=== PATIENT | female | born 1970 | race American Indian/Alaskan Native ===

== ENCOUNTER 2017-11-24 18:14 | Emergency (ER) | payer MEDICAID ==
[2017-11-24 18:36] VITALS: BMI 25.4
[2017-11-24 18:41] VITALS: RESP 18; TEMP 97.5; O2SAT 99
--- NOTE | 2017-11-24 19:46 | C.PDOC ---
History Of Present Illness 47 year old female presents to the ER with a complaint of left greater than right upper eyelid edema for the past 2 days. Patient states she had artificial upper eyelashes glued in place 2 weeks ago. Patient also reports having no bowel movement in 3 days. Patient has not tried any treatment for her symptoms; denies discharge from her eye. Patient admits to ETOH use today. Time Seen by Provider: 11/24/17 19:37 Chief Complaint (Nursing): Abdominal Pain History Per: Patient History/Exam Limitations: no limitations Onset/Duration Of Symptoms: Days Current Symptoms Are (Timing): Still Present Associated Symptoms: denies: Fever, Chills, Nausea, Vomiting Exacerbating Factors: None Alleviating Factors: None Recent travel outside of the [place]: No Abnormal Vaginal Bleeding: No Past Medical History Reviewed: Historical Data, Nursing Documentation, Vital Signs Vital Signs: Last Vital Signs Temp 97.5 F L 11/24/17 18:36 Pulse 88 11/24/17 18:36 Resp 18 11/24/17 18:36 BP 99/75 L 11/24/17 18:36 Pulse Ox 99 11/24/17 19:46 - Medical History PMH: HTN Family History: States: Unknown Family Hx - Social History Hx Alcohol Use: Yes Hx Substance Use: No - Immunization History Hx Tetanus Toxoid Vaccination: No Hx Influenza Vaccination: No Hx Pneumococcal Vaccination: No Review Of Systems Constitutional: Negative for: Fever, Chills Eyes: Positive for: Other (Eyelid swelling) Gastrointestinal: Negative for: Nausea, Vomiting, Abdominal Pain Physical Exam - Physical Exam Appears: Non-toxic, No Acute Distress, Other (ETOH on breath) Skin: Normal Color, Warm, Dry Head: Normacephalic Eye(s): bilateral: Other (Large prosthetic eyelashes glued to natural upper eyelashes loosened at the medial aspect. Edema to upper eyelids, left greater than right. Pin point pupils.) Nose: Normal Oral Mucosa: Moist Chest: Symmetrical, No Tenderness Cardiovascular: Rhythm Regular Respiratory: Normal Breath Sounds, No Rales, No Rhonchi, No Wheezing Gastrointestinal/Abdominal: Soft, No Tenderness, Other (Midline diastasis without hernia) Neurological/Psych: Oriented x3, Normal Speech ED Course And Treatment O2 Sat by Pulse Oximetry: 99 (Room air) Pulse Ox Interpretation: Normal Progress Note: Prednisone administered. Medical Decision Making Medical Decision Making: irritation of b/l upper eyelids, from glued-on upper eyelash prosthestics no eye infections recommend to remove ice packs. medrol dose pack Disposition Doctor Will See Patient In The: Office Counseled Patient/Family Regarding: Studies Performed, Diagnosis - Disposition Referrals: Buck Lincoln MD [Medical Doctor] - Disposition: HOME/ ROUTINE Disposition Time: 19:46 Condition: GOOD Additional Instructions: continue medrol dose pack (descending dose steroids) for eyelid edema/swelling ice packs to L eye 1/2 hour per hour, nothing hot. Remove artificial eyelashes- causing a contact dermatitis/irritation Constipation: Trial a laxative now- recommend a bottle of Mag Citrate- and re-eval your abdominal discomfort after using the bathroom 2-3 times. Prescriptions: Methylprednisolone [Medrol Dose Pack (21 tabs)] 4 mg PO DAILY #21 mg Instructions: Contact Dermatitis (DC) Forms: [employer] (Macedonian) - Clinical Impression Clinical Impression: Edema of left eyelid - Scribe Statement The provider has reviewed the documentation as recorded by the Scribbrian Panchal All medical record entries made by the Scribe were at my direction and personally dictated by me. I have reviewed the chart and agree that the record accurately reflects my personal performance of the history, physical exam, medical decision making, and the department course for this patient. I have also personally directed, reviewed, and agree with the discharge instructions and disposition.
[2017-11-24 19:53] VITALS: BP 106/76; PULSE 72
== END 2017-11-24 19:54 | disposition home or self-care (01) ==
LOC: C.ER 18:14
DX: H02.844 Edema of left upper eyelid (principal)

== ENCOUNTER 2018-01-09 13:56 | Emergency (ER) | payer MEDICAID ==
[2018-01-09 13:57] VITALS: BMI 25.4
[2018-01-09 15:13] LABS: BASO # 0.1 K/uL (0.0-0.2); BASO % 1.3 % (0.0-2.0); EOS # 0.1 K/uL (0.0-0.7); EOS % 2.7 % (0.0-4.0); HEMOGLOBIN 12.1 g/dL (11.0-16.0); LYMPH % 52.8 % (20.0-40.0); MEAN CELL VOLUME 95.6 fL (81.0-99.0); MEAN CORPUSCULAR HEMOGLOBIN 32.6 pg (27.0-31.0); MEAN CORPUSCULAR HGB CONC 34.1 g/dL (33.0-37.0); MEAN PLATELET VOLUME 7.5 fL (7.2-11.7); MONO # 0.3 K/uL (0.0-0.8); MONO % 7.6 % (0.0-10.0); NEUT # 1.4 K/uL (1.8-7.0); NEUT % 35.6 % (50.0-75.0); NRBC % 0.1 % (0.0-2.0); RBC 3.72 Mil/uL (3.80-5.20); RED CELL DISTRIBUTION WIDTH 13.9 % (11.5-14.5); WHITE BLOOD COUNT 3.9 K/uL (4.8-10.8)
[2018-01-09] MEDS ORDERED: Sodium Chloride 0.9% 1,000 ML IV STA (15:15)
--- NOTE | 2018-01-09 15:15 | C.PDOC ---
History Of Present Illness 47 Y/O FEMALE PRESENTS TO ED WITH C/O VAGINAL BLEEDING FOR 3 DAYS WITH OCCASIONAL PELVIC CRAMPING AND C/O OF MIGRAINE SINCE 11AM NON IMPROVED WITH MOTRIN. PATIENT STATES SHE HAS BEEN MENOPAUSAL FOR 3 YEARS AND IS NOT AWARE OF BUSINESS SERVICES ASSOCIATE ABNORMALITIES. PATIENT ADMITS TO NAUSEA AND DENIES VOMITING, FEVER, CHILLS, DYSURIA OR BACK PAIN. Time Seen by Provider: 01/09/18 14:33 Chief Complaint (Nursing): Female Genitourinary History Per: Patient History/Exam Limitations: no limitations Onset/Duration Of Symptoms: Days Current Symptoms Are (Timing): Still Present Past Medical History Reviewed: Historical Data, Nursing Documentation, Vital Signs Vital Signs: Last Vital Signs Temp 97.8 F 01/09/18 17:05 Pulse 72 01/09/18 17:05 Resp 18 01/09/18 17:05 BP 105/69 01/09/18 17:05 Pulse Ox 98 01/09/18 17:05 - Medical History PMH: HTN Surgical History: No Surg Hx Family History: States: No Known Family Hx - Social History Hx Alcohol Use: Yes Hx Substance Use: No - Immunization History Hx Tetanus Toxoid Vaccination: No Hx Influenza Vaccination: No Hx Pneumococcal Vaccination: No Review Of Systems Constitutional: Negative for: Fever, Chills Gastrointestinal: Negative for: Nausea, Vomiting Genitourinary: Positive for: Vaginal Bleeding, Pelvic Pain. Negative for: Dysuria, Vaginal Discharge Musculoskeletal: Negative for: Back Pain Physical Exam - Physical Exam Appears: Non-toxic, Other (In moderate distress) Skin: Warm, Dry, No Rash Head: Atraumatic, Normacephalic Eye(s): bilateral: Normal Inspection Oral Mucosa: Moist Neck: Normal ROM, Supple Cardiovascular: Rhythm Regular Respiratory: Normal Breath Sounds, No Rales, No Rhonchi, No Wheezing Gastrointestinal/Abdominal: Soft, No Tenderness, No Guarding, No Rebound Back: No CVA Tenderness Extremity: Normal ROM, Capillary Refill (<2 seconds) Neurological/Psych: Oriented x3, Normal Speech, Normal Cognition ED Course And Treatment - Laboratory Results Result Diagrams: 01/09/18 15:07 01/09/18 15:07 O2 Sat by Pulse Oximetry: 100 (RA) Pulse Ox Interpretation: Normal Reevaluation Time: 17:44 Reassessment Condition: Improved (banuelos resolved. ADVISED FU OBGYN IF PERSIST SX) Disposition Counseled Patient/Family Regarding: Studies Performed, Diagnosis, Need For Followup - Disposition Referrals: [facility] [Outside] [facility] [Outside] [facility] [Outside] Disposition: HOME/ ROUTINE Disposition Time: 17:44 Condition: IMPROVED Additional Instructions: RETURN IF WORSENING BLEEDING. FOLLOW UP WITH OBGYN FOR FURTHER EVALUATION. Instructions: Migraine Headache (DC) Forms: [facility] (Kazakh), Work/School/Gym Excuse - Clinical Impression Clinical Impression: Postmenopausal bleeding, Migraine - Scribe Statement The provider has reviewed the documentation as recorded by the Rohanibbrian Montesinos All medical record entries made by the Waldemar were at my direction and personally dictated by me. I have reviewed the chart and agree that the record accurately reflects my personal performance of the history, physical exam, medical decision making, and the department course for this patient. I have also personally directed, reviewed, and agree with the discharge instructions and disposition.
[2018-01-09 15:27] LABS: ALB/GLOB RATIO 1.2 (1.0-2.1); ALBUMIN 3.9 g/dL (3.5-5.0); ALT/SGPT 15 U/L (9-52); AST/SGOT 18 U/L (14-36); BLOOD UREA NITROGEN 11 mg/dL (7-17); CALCIUM 8.9 mg/dl (8.6-10.4); GFR AFRICAN-AMERICAN > 60; GFR NON-AFRICAN AMERICAN > 60
[2018-01-09] MEDS ORDERED: Sodium Chloride 0.9% 1,000 ML ONE (15:31)
[2018-01-09 17:06] VITALS: BP 105/69; PULSE 72; RESP 18; TEMP 97.8
--- NOTE | 2018-01-09 17:24 | US ---
HISTORY: vb COMPARISON: None available. TECHNIQUE: Transabdominal and transvaginal FINDINGS: UTERUS: Measures 11.5 x 5.5 x 6.5 cm. Heterogeneous echotexture. Solitary small discrete fundal intramural fibroid, 1.4 x 1.6 x 2.1 cm. ENDOMETRIUM: Measures 5 mm in diameter. Unremarkable. CERVIX: No cervical abnormality identified. RIGHT OVARY: Measures 4.0 x 1.8 x 3.9 cm. No solid mass. Normal flow. Simple cyst, 2.2 x 1.3 x 1.4 cm. LEFT OVARY: Measures 2.3 x 1.2 x 2.3 cm. No solid mass. Normal flow. FREE FLUID: No significant free fluid noted. OTHER FINDINGS: None. IMPRESSION: 2.1 cm fundal intramural uterine fibroid. 2.2 cm simple right ovarian cyst, likely physiologic. No other abnormality identified.
[2018-01-09 17:47] VITALS: O2SAT 100
== END 2018-01-09 17:54 | disposition home or self-care (01) ==
LOC: C.ER 13:56
DX: N95.0 Postmenopausal bleeding (principal); G43.909 Migraine, unspecified, not intractable, without status migrainosus
CPT/HCPCS: 76830; 76856; 80053; 85025; 96360; 96372; 99284; J0780; J3030; J7040

== ENCOUNTER 2018-05-10 19:18 | Emergency (ER) | payer MEDICAID ==
[2018-05-10 19:19] VITALS: BMI 25.4
[2018-05-10] MEDS ORDERED: Sodium Chloride 0.9% 1,000 ML IV ONE (20:32)
[2018-05-10 20:55] LABS: BASO # 0.1 K/uL (0.0-0.2); EOS # 0.1 K/uL (0.0-0.7); HEMOGLOBIN 11.9 g/dL (11.0-16.0); LYMPH # 2.5 K/uL (1.0-4.3); LYMPH % 33.2 % (20.0-40.0); MEAN CELL VOLUME 94.1 fL (81.0-99.0); MEAN CORPUSCULAR HEMOGLOBIN 32.2 pg (27.0-31.0); MEAN CORPUSCULAR HGB CONC 34.2 g/dL (33.0-37.0); MEAN PLATELET VOLUME 6.9 fL (7.2-11.7); MONO # 0.5 K/uL (0.0-0.8); MONO % 7.2 % (0.0-10.0); NEUT # 4.2 K/uL (1.8-7.0); NEUT % 56.6 % (50.0-75.0); NRBC % 0.1 % (0.0-2.0); RBC 3.7 Mil/uL (3.80-5.20); RED CELL DISTRIBUTION WIDTH 13.8 % (11.5-14.5); WHITE BLOOD COUNT 7.5 K/uL (4.8-10.8)
[2018-05-10] MEDS ORDERED: Sodium Chloride 0.9% 1,000 ML ONE (20:58)
[2018-05-10 21:18] LABS: ALB/GLOB RATIO 1.3 (1.0-2.1); ALBUMIN 4.7 g/dL (3.5-5.0); CALCIUM 9.6 mg/dl (8.6-10.4)
[2018-05-10 22:20] VITALS: TEMP 98.4
[2018-05-10 23:54] VITALS: BP 90/58; PULSE 62; RESP 20; O2SAT 98
--- NOTE | 2018-05-11 03:26 | C.PDOC ---
History Of Present Illness 47 year old female presents to the ED for evaluation of right-sided abdominal pain and right leg numbness for 3 years. Patient admits to mild nausea. She notes she has seen her PMD for leg complaint in the past. She denies fever, chills, vomiting, blood in urine or stool. Chief Complaint (Nursing): Lower Extremity Problem/Injury History Per: Patient History/Exam Limitations: no limitations Onset/Duration Of Symptoms: Days Current Symptoms Are (Timing): Still Present Additional History Per: Patient Past Medical History Reviewed: Historical Data, Nursing Documentation, Vital Signs Vital Signs: Last Vital Signs Temp 98.4 F 05/10/18 23:53 Pulse 62 05/10/18 23:53 Resp 20 05/10/18 23:53 BP 90/58 L 05/10/18 23:53 Pulse Ox 98 05/11/18 03:30 - Medical History PMH: Asthma, Depression, HTN Surgical History: No Surg Hx Family History: States: Unknown Family Hx - Social History Hx Alcohol Use: No Hx Substance Use: No - Immunization History Hx Tetanus Toxoid Vaccination: No Hx Influenza Vaccination: No Hx Pneumococcal Vaccination: No Review Of Systems Constitutional: Negative for: Fever, Chills Gastrointestinal: Positive for: Nausea, Abdominal Pain (epigastric ). Negative for: Vomiting, Hematochezia Genitourinary: Negative for: Hematuria Physical Exam - Physical Exam Appears: Non-toxic, No Acute Distress Skin: Normal Color, Warm, Dry Head: Atraumatic, Normacephalic Eye(s): bilateral: Normal Inspection Oral Mucosa: Moist Neck: Supple Chest: Symmetrical, No Deformity, No Tenderness Cardiovascular: Rhythm Regular, No Murmur Respiratory: Normal Breath Sounds, No Rales, No Rhonchi, No Wheezing Gastrointestinal/Abdominal: Soft, Tenderness (right-sided ), No Guarding, No Rebound Extremity: Normal ROM, Capillary Refill (less than 2 seconds ), No Swelling Pulses: Left Dorsalis Pedis: Normal, Right Dorsalis Pedis: Normal Neurological/Psych: Oriented x3, Normal Speech, Normal Cognition ED Course And Treatment - Laboratory Results Result Diagrams: 05/10/18 20:50 05/10/18 20:50 O2 Sat by Pulse Oximetry: 98 (on RA) Pulse Ox Interpretation: Normal - CT Scan/US CT A/P Other Rad Studies (CT/US): Read By Radiologist, Radiology Report Reviewed CT/US Interpretation: EXAM: CT Abdomen and Pelvis Without Intravenous Contrast. EXAM DATE/TIME: 05/10/2018 9:20 PM. CLINICAL HISTORY: 47 years old , female; Pain; Abdominal pain; Flank; Right lower quadrant (rlq); Additional info: Right. sided abdominal pain. TECHNIQUE: Axial computed tomography images of the abdomen and pelvis without intravenous contrast. All CT scans at this facility use at least one of these dose optimization techniques: automated. exposure control; mA and/or kV adjustment per patient size ( includes targeted exams where dose is. matched to clinical indication); or iterative reconstruction. Coronal and sagittal reformatted images were created and reviewed. COMPARISON: No relevant prior studies available. FINDINGS: Lower thorax: No acute findings. ABDOMEN: Liver: Normal. No mass. Gallbladder and bile ducts: Normal. No calcified stones. No ductal dilation. Pancreas: Normal. No ductal dilation. Spleen: Normal. No splenomegaly. Adrenals: Normal. No mass. Kidneys and ureters: There are right renal collecting system calcifications. No hydronephrosis. Stomach and bowel: Density in the stomach is likely secondary to ingested food. No obstruction. No mucosal thickening. Moderate diverticulosis is present in the sigmoid and descending colon. There is no evidence of diverticulitis. Appendix: A normal appendix is identified. PELVIS: Bladder: Decompressed. Reproductive: Unremarkable as visualized. ABDOMEN and PELVIS: Intraperitoneal space: Normal. No free air. No significant fluid collection. Bones/joints: No acute fracture. No dislocation. Soft tissues: Unremarkable. Vasculature: Normal. No abdominal aortic aneurysm. Lymph nodes: Normal. No enlarged lymph nodes. IMPRESSION: No evidence of an acute intra-abdominal or pelvic abnormality. Normal appendix. No. obstructive uropathy Medical Decision Making Medical Decision Making: Impression: 47 year old female with right-sided abdominal pain, right leg numbness Progress: Bloodwork, CT A/P ordered and reviewed. Pepcid IVP, Toradol IVP, Zofran IVP and IV Fluids given. Disposition - Disposition Referrals: Kenneth Ortiz, [Non-Staff] - Disposition: HOME/ ROUTINE Disposition Time: 23:20 Condition: GOOD Additional Instructions: SANA MCKNIGHT, thank you for letting us take care of you today. The emergency medical care you received today was directed at your acute symptoms. If you were prescribed any medication, please fill it and take as directed. It may take several days for your symptoms to resolve. Return to the Emergency Department if your symptoms worsen, do not improve, or if you have any other problems. Please contact your doctor or call one of the physicians/clinics you have been referred to that are listed on the Patient Visit Information form that is included in your discharge packet. Bring any paperwork you were given at discharge with you along with any medications you are taking to your follow up visit. Our treatment cannot replace ongoing medical care by a primary care provider outside of the emergency department. Thank you for allowing the [facility] team to be part of your care today. Follow up with your primary care doctor in 2-3 days for re-evaluation and further management. Prescriptions: Ciprofloxacin [Cipro] 500 mg PO BID #14 tab Ibuprofen [Motrin] 600 mg PO Q6 PRN #20 tab PRN Reason: Pain, Moderate (4-7) metroNIDAZOLE [Flagyl] 500 mg PO TID #21 tab Instructions: High Fiber Diet, Diverticulosis (DC) Forms: [employer] (Citizen [place]) - Clinical Impression Clinical Impression: Diverticulosis - Scribe Statement The provider has reviewed the documentation as recorded by the Scribe (Pallavi Isaac) Provider Attestation: All medical record entries made by the Scribe were at my direction and personally dictated by me. I have reviewed the chart and agree that the record accurately reflects my personal performance of the history, physical exam, medical decision making, and the department course for this patient. I have also personally directed, reviewed, and agree with the discharge instructions and disposition.
--- NOTE | 2018-05-11 07:27 | CT ---
Date of service: 05/10/2018 PROCEDURE: CT Abdomen and Pelvis without intravenous contrast HISTORY: right sided abdominal pain COMPARISON: None. TECHNIQUE: Multiple contiguous axial images were performed through the abdomen and pelvis without the use of intravenous contrast. Subsequently, sagittal and coronal reformatted images were obtained. Radiation dose: Total exam DLP = 559 mGy-cm. This CT exam was performed using one or more of the following dose reduction techniques: Automated exposure control, adjustment of the mA and/or kV according to patient size, and/or use of iterative reconstruction technique. FINDINGS: LOWER THORAX: Punctate 1 millimeter subpleural nodule at the anterior aspect of the lingula. LIVER: Unremarkable. No gross lesion or ductal dilatation. GALLBLADDER AND BILE DUCTS: Unremarkable. PANCREAS: Unremarkable. No gross lesion or ductal dilatation. SPLEEN: Unremarkable. ADRENALS: Unremarkable. No mass. KIDNEYS AND URETERS: Punctate calcifications in the right renal collecting system. No gross hydronephrosis. VASCULATURE: Unremarkable. No aortic aneurysm. BOWEL: Unremarkable. No obstruction. No gross mural thickening. Density in the stomach is likely related to ingested food. Clinical correlation. Moderate diverticulosis is present in the sigmoid and descending colon. APPENDIX: No findings to suggest acute appendicitis. PERITONEUM: Unremarkable. No free fluid. No free air. LYMPH NODES: Unremarkable. No enlarged lymph nodes. BLADDER: Underdistended and or mildly thickened urinary bladder. Clinical correlation. REPRODUCTIVE: Heterogeneous uterus and left adnexa. BONES: Degenerative changes in the spine. Schmorl's node formation noted at the superior endplate of the L4 vertebral body. OTHER FINDINGS: None. IMPRESSION: Punctate calcifications in the right renal collecting system. No gross hydronephrosis. Underdistended and or mildly thickened urinary bladder. Clinical correlation. Additional findings as above. These findings were preliminarily reported at 11:23 p.m. on 05/10/[address] Rain Magana from [facility].
== END 2018-05-10 23:54 | disposition home or self-care (01) ==
LOC: C.ER 19:18
DX: K57.30 Diverticulosis of large intestine without perforation or abscess without bleeding (principal); I10 Essential (primary) hypertension
CPT/HCPCS: 74176; 80053; 83690; 85025; 96374; 96375; 99285; J1885; J2405; J7030

== ENCOUNTER 2018-05-11 22:24 | Emergency (ER) | payer MEDICAID ==
[2018-05-11 22:24] VITALS: BMI 25.4
--- NOTE | 2018-05-11 23:36 | C.PDOC ---
History Of Present Illness 47 yo female presents to the ED for evaluation of gradually worsening right- sided leg pain for past few days. Pt admits, pain originate from Right lower back and radiates to right buttock and Right posterior thigh area. Pty admits, similar sx in past, " used to take Gabapentin for pain". Pt admits " gabapentin mess up my body" and admits developed a rash to her LEs since yesterday. Otherwise, pt denies any recent trauma, injury, fever, chills, UTI sx, saddle anesthesia, incontinence, denies weakness, deformity, sensory or vascular deficits to B/L lEs. Ambulate to ED for evaluation, not in nay apparent distress. FYI: ED records review, pt was seen here in ED yesterday when was evaluated secondary of abd. pain complaint. Blood owrk, UA, CT abd/pelvis performed, pt was discharge with Rx: Cipro/Flagyl with Dx: Diverticulosis. Time Seen by Provider: 05/11/18 22:42 Chief Complaint (Nursing): Lower Extremity Problem/Injury History Per: Patient History/Exam Limitations: no limitations Onset/Duration Of Symptoms: Days Current Symptoms Are (Timing): Still Present Recent travel outside of the [place]: No Past Medical History Reviewed: Historical Data, Nursing Documentation, Vital Signs Vital Signs: Last Vital Signs Temp 98.3 F 05/12/18 00:09 Pulse 81 05/12/18 00:09 Resp 17 05/12/18 00:09 BP 118/72 05/12/18 00:09 Pulse Ox 96 05/12/18 01:00 - Medical History PMH: Asthma, Depression, HTN Other Surgeries: Dilation and Curettage Family History: States: Unknown Family Hx - Social History Hx Tobacco Use: No Hx Alcohol Use: No Hx Substance Use: No - Immunization History Hx Tetanus Toxoid Vaccination: No Hx Influenza Vaccination: No Hx Pneumococcal Vaccination: No Review Of Systems Except As Marked, All Systems Reviewed And Found Negative. Constitutional: Negative for: Fever, Chills Eyes: Negative for: Vision Change ENT: Negative for: Throat Pain, Throat Swelling Cardiovascular: Negative for: Chest Pain, Palpitations Respiratory: Negative for: Cough, Shortness of Breath, Wheezing Gastrointestinal: Negative for: Abdominal Pain Musculoskeletal: Positive for: Back Pain (Right, lower back pain), Leg Pain ( Right), Other (Right buttock pain) Skin: Positive for: Rash (b/l LE) Neurological: Negative for: Weakness, Numbness Physical Exam - Physical Exam Appears: Well, Non-toxic, No Acute Distress Skin: Normal Color, Warm, Dry, Rash (scattered erythematous rash to B/L lower legs, no cellulitis.) Head: Normacephalic Eye(s): bilateral: PERRL Nose: No Flaring, No Discharge Oral Mucosa: Moist Throat: No Erythema, No Drooling Neck: Trachea Midline, No Midline Cervical Tenderness, No Paracervical Tenderness, No Step Off Deformity, Supple Cardiovascular: Rhythm Regular, No Murmur, No JVD Respiratory: No Decreased Breath Sounds, No Accessory Muscle Use, No Stridor, No Wheezing Gastrointestinal/Abdominal: Soft, No Tenderness, No Distention, No Guarding, No Rebound Back: No CVA Tenderness, No Vertebral Tenderness, No Muscle Spasm, Paraspinal Tenderness (Right lumbar), No Straight Leg Raising Extremity: Normal ROM (RLE), Tenderness (diffuse Right posterior thigh, no palpable deformity.), No Calf Tenderness (B/L), No Deformity, No Swelling ED Course And Treatment O2 Sat by Pulse Oximetry: 96 (RA) Pulse Ox Interpretation: Normal Progress Note: Patient was given benadryl (25 mg PO), Ultram (50 mg PO), predniSONE (60 mg PO) in the ED. On re-evaluation, pt is Afebrile, hemodynamicaly stable. NOn-toxic, ambulatory in Ed with stable gait. ENT: no acute findings. Uvula midline, no edema. Neck: SUpple, (-)JVD. Lungs: CTA B/L , BS equal B/L. Abd: benign, (-) guaridng, (-) rebound. Back: (-) CVA tenderness. Neurologicaly intact. Pt has clinical finidngs c/w lumbar radiculopathy, right. Skin rash to B/L lower legs r/o reaction to Gabapentin. 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 return to ED if any worsening or new changes. Disposition Counseled Patient/Family Regarding: Diagnosis, Need For Followup, Rx Given - Disposition Referrals: Alissa Rangel DO [Staff Provider] - Disposition: HOME/ ROUTINE Disposition Time: 23:36 Condition: STABLE Additional Instructions: STOP GABAPENTIN DUE TO POSSIBLE ALLERGY Take medication as prescribed Follow up with PMD in 2-3 days for re-evaluation. return to Ed if any worsening or new changes. Prescriptions: Prednisone [Deltasone] 40 mg PO DAILY #6 tablet traMADol [Ultram] 50 mg PO TID #7 tab Instructions: Hives, Radiculopathy (DC) Forms: [employer] ([place]) - Clinical Impression Clinical Impression: Lumbar radiculopathy, Urticaria - PA / INTERACTIVE MEDIA SPECIALIST / Resident Statement MD/DO has reviewed & agrees with the documentation as recorded. - Scribe Statement The provider has reviewed the documentation as recorded by the Scribe (Jodi Castañeda) All medical record entries made by the Scribe were at my direction and personally dictated by me. I have reviewed the chart and agree that the record accurately reflects my personal performance of the history, physical exam, medical decision making, and the department course for this patient. I have also personally directed, reviewed, and agree with the discharge instructions and disposition.
[2018-05-12 00:11] VITALS: BP 118/72; PULSE 81; RESP 17; TEMP 98.3
[2018-05-12 00:57] VITALS: O2SAT 96
== END 2018-05-12 00:11 | disposition home or self-care (01) ==
LOC: C.ER 22:24
DX: M54.16 Radiculopathy, lumbar region (principal); L50.9 Urticaria, unspecified

== ENCOUNTER 2018-07-22 13:44 | Emergency (ER) | payer MEDICAID ==
[2018-07-22 13:44] VITALS: BMI 25.4
[2018-07-22 14:07] VITALS: RESP 20; O2SAT 96
--- NOTE | 2018-07-22 14:21 | C.PDOC ---
History Of Present Illness 47 y/o female with a PMHx of HTN presents to the ED complaining of pain and swelling to the right side of her face, occurring on and off for the past year. Patient states the right side of her face feels puffy, and became increasingly painful and burning since this morning, prompting her to come to the ED. She also reports pain to the bilateral hands and right leg. Patient complains of low back pain that radiates down the right leg, with occasional numbness to the right thigh. She denies any fever, chills, urinary frequency, dysuria, bowel/bladder incontinence, cough or URI symptoms. Additionally patient reports having shortness of breath for a while now which occurs while at rest and on exertion. She denies associated chest pain, palpitations, or dizziness. Patient denies history of diabetes, but states she has not been checked. Time Seen by Provider: 07/22/18 13:57 Chief Complaint (Nursing): Headache History Per: Patient History/Exam Limitations: no limitations Onset/Duration Of Symptoms: Intermittent Episodes Current Symptoms Are (Timing): Still Present Past Medical History Vital Signs: Last Vital Signs Temp 98.3 F 07/22/18 14:03 Pulse 102 H 07/22/18 14:03 Resp 20 07/22/18 14:03 BP 149/101 H 07/22/18 14:03 Pulse Ox 96 07/22/18 14:03 - Medical History PMH: Asthma, Depression, HTN Family History: States: Unknown Family Hx - Social History Hx Tobacco Use: No Hx Alcohol Use: No Hx Substance Use: No - Immunization History Hx Tetanus Toxoid Vaccination: No Hx Influenza Vaccination: No Hx Pneumococcal Vaccination: No Review Of Systems Except As Marked, All Systems Reviewed And Found Negative. Constitutional: Positive for: Other (Right-sided facial pain/swelling). Ne gative for: Fever, Chills Eyes: Negative for: Vision Change ENT: Negative for: Ear Pain, Throat Pain Cardiovascular: Negative for: Chest Pain, Palpitations Respiratory: Positive for: Shortness of Breath. Negative for: Cough Gastrointestinal: Negative for: Nausea, Vomiting Genitourinary: Negative for: Dysuria, Frequency, Incontinence Musculoskeletal: Positive for: Back Pain, Hand Pain (bilateral), Leg Pain (right) Skin: Negative for: Rash Neurological: Positive for: Numbness (to right thigh), Headache. Negative for: Weakness, Incoordination Physical Exam - Physical Exam Appears: Well, Non-toxic, No Acute Distress Skin: Warm, Dry, No Rash Head: Atraumatic, Other (Mild facial swelling to right side over the cheek, chin, and forehead. No temporal artery tenderness) Eye(s): bilateral: Normal Inspection, PERRL, EOMI Ear(s): Bilateral: Normal Oral Mucosa: Moist Tongue: Normal Appearing, No Swelling Lips: Normal Appearing, No Swelling Throat: No Erythema, No Exudate Neck: Normal ROM, Supple Chest: Symmetrical, No Tenderness Cardiovascular: Rhythm Regular, No Friction Rub, No Murmur Respiratory: Normal Breath Sounds, No Rales, No Rhonchi, No Wheezing Gastrointestinal/Abdominal: Soft, No Tenderness, No Distention Back: Normal Inspection, No CVA Tenderness, No Vertebral Tenderness Extremity: No Normal ROM, No Swelling Extremity: Bilateral: Atraumatic (with no swelling, ecchymosis, or point tende rness), Normal Color And Temperature, Normal ROM (x4) Pulses: Left Radial: Normal, Right Radial: Normal, Left Dorsalis Pedis: Normal, Right Dorsalis Pedis: Normal Neurological/Psych: Oriented x3, Normal Speech, Normal Cranial Nerves, Normal Motor, Normal Sensation, Other (No focal deficits) Gait: Steady ED Course And Treatment - Laboratory Results Result Diagrams: 07/22/18 14:47 07/22/18 14:47 O2 Sat by Pulse Oximetry: 96 (RA) Pulse Ox Interpretation: Normal - Other Rad cxr X-Ray: Read By Radiologist Interpretation: Accession No. : [id number]. Patient Name / ID : JUAN LUIS HOOD / [id number]. Exam Date : 07/22/2018 14:25:12 ( Approved ). Study Comment : Sex / Age : F / 47Y. Creator : Jacob Carlisle MD. Dictator : Jacob Carlisle MD. Fabrication Manager : Eviscerator : Jacob Carlisle MD. Approver2 : Report Date : 07/22/2018 15:11:49. My Comment : . Date of service: 07/22/2018. HISTORY: SOB. COMPARISON: No prior. TECHNIQUE: Chest PA and lateral. FINDINGS: LUNGS: Questionable azygos fissure versus some minimal linear fibrosis and or scarring right lung apex.. Small nodular density left lower lung field probably represents nipple shadow artifact. PLEURA: No significant pleural effusion identified. No pneumothorax apparent. CARDIOVASCULAR: No aortic atherosclerotic calcification present. Normal cardiac size. No pulmonary vascular congestion. OSSEOUS STRUCTURES: No significant abnormalities. VISUALIZED UPPER ABDOMEN: Normal. OTHER FINDINGS: None. IMPRESSION: No acute consolidation. Questionable as exhibits fissure versus some minimal linear fibrosis/scarring right lung apex - CT Scan/US CT Head Other Rad Studies (CT/US): Read By Radiologist, Radiology Report Reviewed CT/US Interpretation: Accession No. : [id number]. Patient Name / ID : JUAN LUIS HOOD / [id number]. Exam Date : 07/22/2018 14:52:56 ( Approved ). Study Comment : Sex / Age : F / 47Y. Creator : Tea Miller. Dictator : Jacob Carlisle MD. Fabrication Manager : Eviscerator : Jacob Carlisle MD. Approver2 : Report Date : 07/22/2018 15:01:14. My Comment : . Date of service: 07/22/2018. PROCEDURE: CT HEAD WITHOUT CONTRAST. HISTORY: headache, pain to R face. COMPARISON: None available. TECHNIQUE: Axial computed tomography images were obtained through the head/brain without intravenous contrast. Radiation dose: Total exam DLP = 1205.99 mGy-cm. This CT exam was performed using one or more of the following dose reduction techniques: Automated exposure control, adjustment of the mA and/or kV according to patient size, and/or use of iterative reconstruction technique. FINDINGS: HEMORRHAGE: No acute parenchymal, subarachnoid nor extra-axial hemorrhage... No evidence of large acute infarct. BRAIN: No obvious parenchymal nor extra-axial mass or collection identified on this noncontrast exam. There appears to be ectasia of the right and probably to a lesser degree supraclinoid carotid arteries which with head tilt appear to mimic and aneurysm. Follow-up of CTA of the brain could be performed for further evaluation and confirmation. VENTRICLES: No obstructive hydrocephalus. CALVARIUM: There are no acute calvarial fractures. PARANASAL SINUSES: Unremarkable as visualized. No significant inflammatory changes. MASTOID AIR CELLS: Unremarkable as visualized. No inflammatory changes. OTHER FINDINGS: None. IMPRESSION: No acute intracranial hemorrhage. Findings suggest mild ectasia of the supraclinoid carotid arteries more so on the right side which along with some head tilt appear to mimic and aneurysm. Follow-up CTA of the brain could be performed to for further evaluation and confirmation. CTA Head/Neck Other Rad Studies (CT/US): Read By Radiologist, Radiology Report Reviewed CT/US Interpretation: Accession No. : [id number]. Patient Name / ID : JUAN LUIS HOOD / [id number]. Exam Date : 07/22/2018 16:50:49 ( Approved ). Study Comment : Sex / Age : F / 47Y. Creator : Tea Miller. Dictator : Jacob Carlisle MD. Fabrication Manager : Eviscerator : Jacob Carlisle MD. Approver2 : Report Date : 07/22/2018 17:08:41. My Comment : . Date of service: 07/22/2018. PROCEDURE: CT Angiography of the brain with contrast. HISTORY: POSSIBLE ANEURYSM? HEADACHE. COMPARISON: Comparison made with noncontrast CT scan of the brain obtained earlier same day. TECHNIQUE: Contiguous axial images of the brain were obtained from the level of the skull-base to vertex in the arteriographic phase of enhancement. Coronal and sagittal reformats or also generated. IV contrast dose: Radiation dose: Total exam DLP = 154.27 mGy-cm. This CT exam was performed using one or more of the following dose reduction techniques: Automated exposure control, adjustment of the mA and/or kV according to patient size, and/or use of iterative rec onstruction technique.. FINDINGS: CAROTID ARTERIES: The right and left distal internal carotid arteries are widely patent. 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 This vessel rapidly tapers just after its origi n, raising the possibility of a small infundibulum or aneurysm at the origin of the posterior cerebral artery. Follow-up MRA could be performed. VERTEBRAL ARTERIES: Right the distal cervical and intradural segments of the vertebral arteries are patent. Basilar artery is patent. . OTHER FINDINGS: no aortic atherosclerotic calcification or mural plaque present. IMPRESSION: Possible small infundibulum versus tiny aneurysm at the origin of the right posterior communicating artery which appears to arise along the medial aspect of the internal carotid artery as above.. Follow-up MRA recommended for further evaluation. Slightly ectatic appearance of the right supraclinoid carotid artery Medical Decision Making Medical Decision Making: Old records reviewed, the patient was last seen in the ED for Plan: --Head CT --Chest x-ray --Blood work --Reglan 10 mg IVP --Decadron 10 mg IM --Benadryl 25 mg IVP Progress: CT findings discussed with patient in detail. CTA ordered. CTA reviewed, shows (+) possible small infundibulum versus tiny aneurysm at the origin of the right posterior communicating artery. 17:[address] Mackey, who advised neuro interventional consult. 18:[address] Todd, who will review the CTA and return call. Dr. Todd states that the patient is safe for discharge, he will see the patient in the office this week for further evaluation. On re-exam, the patient reports that the headache has resolved. Lungs are CTA, heart is RRR, abdomen is soft, non- tender and tolerating PO well. A&O x3, no focal deficits with Steady gait. Follow up with the medical doctor within 1-2 days without fail. Return if worsen ed. Disposition - Disposition Referrals: Anirudh Todd MD [Staff Provider] - Jayesh Garcia MD [Staff Provider] - Disposition: HOME/ ROUTINE Disposition Time: 19:10 Condition: STABLE Additional Instructions: Follow up with Dr. Todd this week without fail. Return if worsened. Prescriptions: Metoclopramide [Reglan] 1 tab PO TID PRN #25 tab PRN Reason: Nausea/Vomiting Naproxen [Naprosyn] 500 mg PO BID #20 tab Instructions: Trigeminal Neuralgia, Brain Aneurysm Forms: [employer] (Turkish) - Clinical Impression Clinical Impression: Trigeminal neuralgia, Paresthesia, Aneurysm - PA / [employer]ODUCE PRODUCTION TEAM MEMBER / Resident Statement MD/DO has reviewed & agrees with the documentation as recorded. - Scribe Statement The provider has reviewed the documentation as recorded by the Scribe (Catie Hutchinson) All medical record entries made by the Scribe were at my direction and personally dictated by me. I have reviewed the chart and agree that the record accurately reflects my personal performance of the history, physical exam, medical decision making, and the department course for this patient. I have also personally directed, reviewed, and agree with the discharge instructions and disposition.
[2018-07-22] MEDS ORDERED: Dexamethasone 4 mg/1 ml IVP STA (14:23)
[2018-07-22] MEDS ORDERED: DiphenhydrAMINE 50 mg/ml Inj IVP STA (14:24)
[2018-07-22] MEDS ORDERED: DiphenhydrAMINE 50 mg/ml Inj ONE (14:34)
[2018-07-22 14:53] LABS: BASO % 0.5 % (0.0-2.0); EOS % 0.3 % (0.0-4.0); HEMOGLOBIN 12.3 g/dL (11.0-16.0); LYMPH # 1.3 K/uL (1.0-4.3); LYMPH % 22.7 % (20.0-40.0); MEAN CORPUSCULAR HEMOGLOBIN 30.7 pg (27.0-31.0); MEAN PLATELET VOLUME 7.8 fL (7.2-11.7); MONO # 0.4 K/uL (0.0-0.8); MONO % 6.9 % (0.0-10.0); NEUT # 4.1 K/uL (1.8-7.0); NEUT % 69.6 % (50.0-75.0); RED CELL DISTRIBUTION WIDTH 14.8 % (11.5-14.5); WHITE BLOOD COUNT 5.9 K/uL (4.8-10.8)
[2018-07-22 15:07] LABS: ALB/GLOB RATIO 1.4 (1.0-2.1); ALBUMIN 4.9 g/dL (3.5-5.0); ALT/SGPT 22 U/L (9-52); AST/SGOT 27 U/L (14-36); BLOOD UREA NITROGEN 13 mg/dL (7-17); GFR NON-AFRICAN AMERICAN > 60
--- NOTE | 2018-07-22 15:15 | RAD ---
Date of service: 07/22/2018 HISTORY: SOB COMPARISON: No prior. TECHNIQUE: Chest PA and lateral FINDINGS: LUNGS: Questionable azygos fissure versus some minimal linear fibrosis and or scarring right lung apex.. Small nodular density left lower lung field probably represents nipple shadow artifact PLEURA: No significant pleural effusion identified. No pneumothorax apparent. CARDIOVASCULAR: No aortic atherosclerotic calcification present. Normal cardiac size. No pulmonary vascular congestion. OSSEOUS STRUCTURES: No significant abnormalities. VISUALIZED UPPER ABDOMEN: Normal. OTHER FINDINGS: None. IMPRESSION: No acute consolidation. Questionable as exhibits fissure versus some minimal linear fibrosis/scarring right lung apex
--- NOTE | 2018-07-22 16:06 | CT ---
Date of service: 07/22/2018 PROCEDURE: CT HEAD WITHOUT CONTRAST. HISTORY: headache, pain to R face COMPARISON: None available. TECHNIQUE: Axial computed tomography images were obtained through the head/brain without intravenous contrast. Radiation dose: Total exam DLP = 1205.99 mGy-cm. This CT exam was performed using one or more of the following dose reduction techniques: Automated exposure control, adjustment of the mA and/or kV according to patient size, and/or use of iterative reconstruction technique. FINDINGS: HEMORRHAGE: No acute parenchymal, subarachnoid nor extra-axial hemorrhage... No evidence of large acute infarct. BRAIN: No obvious parenchymal nor extra-axial mass or collection identified on this noncontrast exam. There appears to be ectasia of the right and probably to a lesser degree supraclinoid carotid arteries which with head tilt appear to mimic and aneurysm. Follow-up of CTA of the brain could be performed for further evaluation and confirmation VENTRICLES: No obstructive hydrocephalus. CALVARIUM: There are no acute calvarial fractures. PARANASAL SINUSES: Unremarkable as visualized. No significant inflammatory changes. MASTOID AIR CELLS: Unremarkable as visualized. No inflammatory changes. OTHER FINDINGS: None. IMPRESSION: No acute intracranial hemorrhage. Findings suggest mild ectasia of the supraclinoid carotid arteries more so on the right side which along with some head tilt appear to mimic and aneurysm. Follow-up CTA of the brain could be performed to for further evaluation and confirmation. Note these findings were discussed with emergency room department PA. Melendez at approximately 4 p.m. with written down and read back verification..
[2018-07-22] MEDS ORDERED: Iodixanol 320 MG/ML 100 ML BOTTLE IV ONE (16:14)
--- NOTE | 2018-07-22 17:30 | CT ---
Date of service: 07/22/2018. PROCEDURE: CT Angiography of the brain with contrast HISTORY: POSSIBLE ANEURYSM? HEADACHE. COMPARISON: Comparison made with noncontrast CT scan of the brain obtained earlier same day. TECHNIQUE: Contiguous axial images of the brain were obtained from the level of the skull-base to vertex in the arteriographic phase of enhancement. Coronal and sagittal reformats or also generated. IV contrast dose: Radiation dose: Total exam DLP = 154.27 mGy-cm. This CT exam was performed using one or more of the following dose reduction techniques: Automated exposure control, adjustment of the mA and/or kV according to patient size, and/or use of iterative reconstruction technique.. FINDINGS: CAROTID ARTERIES: The right and left distal internal carotid arteries are widely patent. 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 This vessel rapidly tapers just after its origin, raising the possibility of a small infundibulum or aneurysm at the origin of the posterior cerebral artery. Follow-up MRA could be performed. VERTEBRAL ARTERIES: Right the distal cervical and intradural segments of the vertebral arteries are patent. Basilar artery is patent. . OTHER FINDINGS: no aortic atherosclerotic calcification or mural plaque present. IMPRESSION: Possible small infundibulum versus tiny aneurysm at the origin of the right posterior communicating artery which appears to arise along the medial aspect of the internal carotid artery as above.. Follow-up MRA recommended for further evaluation. Slightly ectatic appearance of the right supraclinoid carotid artery
[2018-07-22] MEDS ORDERED: Labetalol 25mg/5ml Syringe IV STA (18:02)
[2018-07-22 18:17] VITALS: BP 124/82; PULSE 90; TEMP 98.8
== END 2018-07-22 19:37 | disposition home or self-care (01) ==
LOC: C.ER 13:44
DX: G50.0 Trigeminal neuralgia (principal); R20.2 Paresthesia of skin; I67.1 Cerebral aneurysm, nonruptured
CPT/HCPCS: 70450; 70496; 70498; 71046; 80053; 85025; 96374; 96375; 99285; J1100; J1200; J2765; Q9967

== ENCOUNTER 2018-11-07 14:52 | Emergency (ER) | payer MEDICAID ==
[2018-11-07 14:52] VITALS: BMI 25.4
[2018-11-07 15:01] VITALS: TEMP 97.6
--- NOTE | 2018-11-07 15:22 | C.PDOC ---
History Of Present Illness 47 y/o female with a PMHx of HTN comes in for evaluation of burning to the right side of her face for 4 days. The burning starts at bridge of nose extending over cheek. No trauma/injury. Patient states she has similar episodes every few months, associated with some swelling and twisting of the face. She reports taking Gabapentin along with Tylenol and other meds but ran out. Patient was seen for same in the past year, and never followed up afterwards. She otherwise denies any headache, neck stiffness, neck pain, fever, cough, or visual changes. On examination, patient actually states her face does not feel swollen anymore. Time Seen by Provider: 11/07/18 15:05 Chief Complaint (Nursing): Abnormal Skin Integrity History Per: Patient History/Exam Limitations: no limitations Onset/Duration Of Symptoms: Days (4) Current Symptoms Are (Timing): Still Present Location Of Injury: Right: Face Quality Of Symptoms: Swollen Past Medical History Reviewed: Historical Data, Nursing Documentation, Vital Signs Vital Signs: Last Vital Signs Temp 97.6 F 11/07/18 14:56 Pulse 115 H 11/07/18 14:56 Resp 18 11/07/18 14:56 BP 139/106 H 11/07/18 14:56 Pulse Ox 95 11/07/18 14:56 - Medical History PMH: Asthma, Depression, HTN Family History: States: Unknown Family Hx - Social History Hx Tobacco Use: No Hx Alcohol Use: No Hx Substance Use: No - Immunization History Hx Tetanus Toxoid Vaccination: No Hx Influenza Vaccination: No Hx Pneumococcal Vaccination: No Review Of Systems Except As Marked, All Systems Reviewed And Found Negative. Constitutional: Negative for: Fever, Chills Eyes: Negative for: Vision Change ENT: Positive for: Other (Right facial swelling and "burning"). Negative for: Mouth Swelling, Throat Pain, Throat Swelling Respiratory: Negative for: Cough, Shortness of Breath, Wheezing Gastrointestinal: Negative for: Nausea, Vomiting Musculoskeletal: Negative for: Neck Pain Neurological: Negative for: Weakness, Numbness, Headache Physical Exam - Physical Exam Appears: Non-toxic, No Acute Distress Skin: Warm, Dry, No Rash Head: Atraumatic, Normacephalic, Swelling (face appears bilaterally swollen, especially to lips and eyelids, though patient denies) Eye(s): bilateral: Normal Inspection, PERRL, EOMI Oral Mucosa: Moist Neck: Normal ROM, Supple Chest: Symmetrical Cardiovascular: Rhythm Regular, No Murmur Respiratory: Normal Breath Sounds, No Accessory Muscle Use Extremity: Bilateral: Atraumatic, Normal Color And Temperature, Normal ROM Pulses: Left Radial: Normal, Right Radial: Normal Neurological/Psych: Oriented x3, Normal Speech, Normal Cognition, Normal Cranial Nerves Gait: Steady ED Course And Treatment O2 Sat by Pulse Oximetry: 95 (RA) Pulse Ox Interpretation: Normal Medical Decision Making Medical Decision Making: Impression: Facial swelling and "burning" Plan: - 25 mg PO Benadryl - 60 mg PO Prednisone - Reassess Records reviewed from prior visit. 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 She was told at that time she needed to follow up with a neurologist, but never did. Will provide copy of report at this time and new referral for neuro. Patient verbalizes understanding and will follow up. Disposition - Disposition Referrals: Francis Cruz MD [Staff Provider] - Disposition: HOME/ ROUTINE Disposition Time: 17:06 Condition: STABLE Forms: [facility] ([place]ese), General Discharge Instructions - POA Present On Arrival: None - Clinical Impression Clinical Impression: Trigeminal neuralgia - Scribe Statement The provider has reviewed the documentation as recorded by the Rohanibbrian Hutchinson Provider Attestation: All medical record entries made by the Rohanibbrian were at my direction and personally dictated by me. I have reviewed the chart and agree that the record accurately reflects my personal performance of the history, physical exam, medical decision making, and the department course for this patient. I have also personally directed, reviewed, and agree with the discharge instructions and disposition.
[2018-11-07 16:23] VITALS: BP 113/84; PULSE 94; RESP 20
[2018-11-07 16:25] VITALS: O2SAT 95
== END 2018-11-07 17:20 | disposition home or self-care (01) ==
LOC: C.ER 14:52
DX: G50.0 Trigeminal neuralgia (principal); I10 Essential (primary) hypertension; F17.210 Nicotine dependence, cigarettes, uncomplicated